=== PATIENT | female | born 1945 | race Caucasian/White ===

== ENCOUNTER → 2019-01-09 | Outpatient (CLI) | payer OTHER, MEDICARE ==
[~2019-01-09] VITALS: Ht 157.5 cm; Wt 52.2 kg
[~2019-01-09] MED LIST: ACETAMINOPHEN325 M1 PO; BENADRYL25 MG PO; CALTRATE 600 +1 EACH OR; COUMADIN PO; ELIQUIS5 MG PO; LIPITOR20 MG OR; NORVASC 5 MG TAB5 MG PO; PRILOSEC 20 MG20 MG OR; PYRIDIUM200 M1 OR; RYTHMOL150 MG PO; SOTALOL80 MG PO; TYLENOL EXTRA500 MG PO; ZOCOR40 MG PO
[2019-01-09 10:46] VITALS: BP 170/83
--- NOTE | 2019-01-09 11:08 | NUR ---
Pain Clinic Assessment: 1. History of Osteoarthritis: History of Rheumatoid Arthritis: 2. Height: 5 ft. 2 in. 157.5 cm. Weight: 115.0 lb. oz. 52.164 kg. Patient's BMI: 21.0 3. Vital Signs: BP: 170/83 Pulse: 72 Resp: 14 Temp: 02 Sat: 100 ECG Mon: 4. Pain Intensity: 6 5. Fall Risk: Dizziness: N Needs help standing or walking: N Fallen in the last 3 months: N Fall risk comments: 6. Patient on Blood Thinner: *ELIQUIS 7. History of Hypertension: Y 8. Opioid Therapy greater than 6 weeks: N Opiate Contract Signed: 9. Risk Assessment Tool Provided: 10. Functional Assessment Tool: 11. Recreational Drug Use: Never Drug Type: Tobacco Use: Never Smoker Tobacco Type: Amount or Packs/day: How Many Years: Alcohol Use: No Frequency: Quant:
--- NOTE | 2019-01-16 14:01 | HPC ---
[facility] [place] [address] PAIN MANAGEMENT CONSULTATION Name: DEBBIETARIQ Room #: REG [facility].#: [id number] Admission: 01/09/19 Attend Phys: Irving Riley DO Discharge: Date of : 43 Report #: [id number] THIS REPORT FOR: //name// CC: Dr. Dunia Riley [facility] DATE OF SERVICE: 01/09/2019 CHIEF COMPLAINT: Right neck pain. HISTORY OF PRESENT ILLNESS: As you know, the patient is a 73-year-old female with longstanding history of neck pain issues. The patient has been followed by multiple pain services starting at [facility], then to [facility] where she was treated by Dr. Roberto Barros. She then transferred care to [facility] following Dr. Barros. She has recently changed from Dr. Barros's previous clinic due to Dr. Barros leaving their practice. He has left to [place], [place] and thus too far for the patient to travel. She was given my name as a possible alternative physician. She had made an appointment today to discuss options for treatment. She has undergone multiple cervical epidural injections with good efficacy. She has been referred to our clinic to discuss the possibility of beginning those treatments once again. She denies injury or trauma that may have led to symptom occurrence. She has had longstanding issues secondary to cervical spinal stenosis and some mild neural foraminal stenosis. She also suffers from chronic low back pain and has been advised she is not a surgical candidate at this time. The patient indicates pain is mainly periodic and intermittent in its presentation. She describes the pain in the neck and right upper trapezius area. It is burning, aching, throbbing, tender and pressure like. She places current pain score 6/10, daily average of 6/10, worst pain has been is 8/10. Nothing tends to exacerbate symptoms, nor does anything tend to improve pain. She has been referred to our service to discuss options for treatment for her suspected cervical radiculopathy. PAST MEDICAL HISTORY: 1. Hypertension. 2. Degenerative joint disease. 3. Osteoarthritis. 4. Chronic neck pain. 5. Chronic low back pain. PAST SURGICAL HISTORY: 1. Bunionectomy. 2. Breast biopsy x 3. 3. Left knee arthroscopy. [address] [address] PAIN MANAGEMENT CONSULTATION Name: TARIQ LEWIS Alana Room #: REG [facility].#: [id number] Admission: 01/09/19 Attend Phys: Irving Riley DO Discharge: Date of : 43 Report #: [id number] SOCIAL HISTORY: The patient denies tobacco, alcohol, IV or illicit drug use. She is retired, retired in 2007. She is not receiving workmen's compensation, nor is she trying to obtain disability benefits. She is not in litigation in regards to pain. She is unaccompanied today. REVIEW OF SYSTEMS: Positive for wearing corrective eyewear, palpitations, frequent and recurrent coughs, chronic neck pain, chronic low back pain. All other review of systems negative per 12-point review of systems, and those listed in history of present illness. Pain impact score 13.70, indicating mild interference of daily activities secondary to pain. ALLERGIES: PENICILLIN, BETA BLOCKERS, ADHESIVE TAPE, LORATADINE and DILTIAZEM. CURRENT MEDICATIONS: Acetaminophen 500 mg dose t.i.d. p.r.n., sotalol 80 mg twice a day, Eliquis 5 mg b.i.d., calcium carbonate 1 tab per day, omeprazole 20 mg per day, atorvastatin 20 mg per day. IMAGING: MRIs cervical spine obtained 01/05/2019 shows C1-C2 unremarkable. C2-C3 unremarkable, C3-C4 shows mild diffuse posterior ridging and ocqa-ze-ftpbhnni facet changes, mild bilateral neural foraminal narrowing, canal measures 1.1 cm. C4-C5 shows posterior ridging and spurring, uncinate degenerative changes, greater on the right. Ventral cord is contacted with slight narrowing of the cord to 9 mm. Right lateral recess narrowing and bilateral neural foraminal narrowing seen. C5-C6, posterior ridging and uncinate degenerative changes with ventral cord contact, mild central canal narrowing to 0.9 cm, mild neural foraminal narrowing. C7-T1, mild posterior ridging with uncinate degenerative changes, mild facet degenerative changes, no central canal neural foraminal stenosis. C7-T1, posterior ridging, uncinate degenerative changes, no central canal neural foraminal stenosis. PQRS: The patient has known arthritic changes of the cervical spine, lumbar spine, bilateral hips and knees. No rheumatoid arthritis, placing pain score at 6/10. She is not a fall risk, has not had a fall in the last 3 months. She is on blood thinner in the form of Eliquis and has continued the medication today. She has history of hypertension, but no chronic opioids. She has a low opioid addiction potential with a pain impact score today at 13/70, indicating mild interference of daily activities secondary to pain. PHYSICAL EXAMINATION: VITAL SIGNS: Blood pressure 170/83, pulse 72, respiratory rate 14 and unlabored. The patient is 100% on room air. Height 5 feet 2 inches tall, weight 115 pounds, BMI calculated 21.0. GENERAL: Well-developed, well-nourished, well-hydrated, thin 73-year-old [facility] [address] [address] PAIN MANAGEMENT CONSULTATION Name: DEBBIETARIQ Room #: REG [facility]#: [id number] Admission: 01/09/19 Attend Phys: Irving Riley DO Discharge: Date of : 43 Report #: [id number] female, appears stated age, no acute distress, awake, alert and oriented x 3. Current pain score is rated around 6/10. HEENT: Normocephalic, atraumatic. Pupils are equal, round, reactive to light. Extraocular muscles are intact. Sclerae are nonicteric without injection. NEUROLOGIC: Cranial nerves 2-12 grossly intact. Speech is fluent. The patient deemed a good historian. LUNGS: Clear. No wheeze, rhonchi. No rales. CARDIOVASCULAR: Regular. No appreciable gallop. No rub. ABDOMEN: Soft, nontender, nondistended, normal active bowel sounds. EXTREMITIES: Show no clubbing, no cyanosis, and no edema. MUSCULOSKELETAL: Upper extremity strength is symmetrical, 5/5. Slight giveaway strength noted with abduction of the shoulder on the right when compared to left due to pain generation. There is palpatory tenderness over the paraspinal musculature of cervical spine. No spinous process tenderness. Muscle bulk and tone is equal and symmetrical in upper extremities bilaterally. Deep tendon reflexes are equal and symmetrical, 2+/4 at biceps, brachialis and triceps. Spurling's test positive on the right. Cervical provocation testing including rotation, lateral flexion of the right causes intensification of pain. Extension is mildly limited. No pain. Forward flexion of the cervical spine does improve symptoms and has full range of motion. ASSESSMENT: 1. Cervical radiculopathy. 2. Neural foraminal stenosis of the cervical spine. 3. Mild central canal stenosis of the cervical spine. 4. Cervical spondylosis with radiculopathy. 5. Chronic intractable pain. PLAN: Based on today's physical exam and history the patient has provided, the description the patient uses in regards to pain as well as location of symptoms, likely source of the patient's current neck pain and right upper extremity pain, it appears to be due to a cervical radiculopathy. We have discussed with the patient treatment options for cervical radicular symptoms today. The following was discussed with the patient. We discussed physical therapy, stretching exercises and traction techniques as a conservative treatment approach. The patient has had some physical therapy in the past, but denies any traction techniques during those trials. We discussed medication management utilizing neuropathic pain medication and consistent nonsteroidal anti-inflammatory. I did advise the patient that opioid medications have little or no benefit with radicular symptoms. We do not recommend them. We also discussed cervical epidural injections for which the patient has seen improvement in pain in the past. We also discussed spinal cord stimulator and possible surgical options. After reviewing the risks and benefits of all proposed treatment options, the patient chose to move forward with a cervical epidural injection under fluoroscopic guidance. [address] [address] PAIN MANAGEMENT CONSULTATION Name: TARIQ LEWIS Room #: REG [facility] Aniceto#: [id number] Admission: 01/09/19 Attend Phys: Irving Riley DO Discharge: Date of : 43 Report #: [id number] 2. The patient will need to discontinue her Eliquis 3 days prior to a cervical epidural injection. She has been advised by her vp emerging media that she could stop it for 2 days and this would be safe to undergo procedure. Unfortunately, she has been misinformed, JUDE requires that neural axial blockade be performed only after 3 days off this specific anticoagulant. I have advised the patient we follow the JUDE guidelines strictly. If she needs to gain clearance from her vp emerging media, she may do so, but we cannot provide this injection unless she has been off this medication for the total of 72 hours. The patient will contact her prescribing physician to confirm she can do so and we will have her scheduled back next Tuesday for an injection. 3. We made no changes in the patient's medication management at this time. The patient will continue current medical therapy as previously prescribed. 4. We will see the patient back in followup visit if she is able to gain clearance to come off her Eliquis for the 3 days required by JUDE to undergo a cervical epidural injection, we have the patient with a tentative appointment next Tuesday to undergo the procedure, but she will contact our clinic if she cannot gain clearance to come off the medications. 5. We wish to thank Dr. Archer for the referral of the patient to our clinic. We will keep you apprised of response to treatment as we address her cervical radicular symptoms. Again, we wish to thank you for the opportunity to see the patient in consultation. <ELECTRONICALLY SIGNED> By: Irving Riley DO 01/16/19 1401 0901 Irving Riley DO /nt
== END ==
LOC: PAIN 06:46
DX: M48.02 Spinal stenosis, cervical region (principal); M47.22 Other spondylosis with radiculopathy, cervical region; I10 Essential (primary) hypertension; M19.90 Unspecified osteoarthritis, unspecified site; G89.4 Chronic pain syndrome; Z88.8 Allergy status to other drugs, medicaments and biological substances; Z79.899 Other long term (current) drug therapy; Z88.0 Allergy status to penicillin

== ENCOUNTER → 2019-01-16 | Outpatient (CLI) | payer OTHER, MEDICARE ==
[~2019-01-16] VITALS: Ht 157.5 cm; Wt 54.9 kg
[2019-01-16 10:29] VITALS: BP 165/85
--- NOTE | 2019-01-16 10:41 | NUR ---
Pain Clinic Assessment: 1. History of Osteoarthritis: hands History of Rheumatoid Arthritis: Not Applicable 2. Height: 5 ft. 2 in. 157.5 cm. Weight: 121.0 lb. oz. 54.885 kg. Patient's BMI: 22.1 3. Vital Signs: BP: 165/85 Pulse: 72 Resp: 14 Temp: 02 Sat: 100 ECG Mon: 4. Pain Intensity: 6 5. Fall Risk: Dizziness: N Needs help standing or walking: N Fallen in the last 3 months: N Fall risk comments: 6. Patient on Blood Thinner: *ELIQUIS 7. History of Hypertension: Y 8. Opioid Therapy greater than 6 weeks: N Opiate Contract Signed: 9. Risk Assessment Tool Provided: 0-low 10. Functional Assessment Tool: 11. Recreational Drug Use: Never Drug Type: Tobacco Use: Never Smoker Tobacco Type: Amount or Packs/day: How Many Years: Alcohol Use: No Frequency: Quant:
--- NOTE | 2019-01-17 09:19 | HPC ---
[facility] [address] PAIN MANAGEMENT CONSULTATION Name: TARIQ LEWIS Room #: REG [facility]#: [id number] Admission: 01/16/19 Attend Phys: Irving Riley DO Discharge: Date of : 43 Report #: [id number] THIS REPORT FOR: //name// CC: Irving Archer MD DATE OF SERVICE: 01/17/2019 CHIEF COMPLAINT: Neck pain, right upper extremity pain. HISTORY OF PRESENT ILLNESS: As you know, the patient is a 73-year-old female who was seen in consultation per the request of her primary care physician on 01/09/2019, diagnosed with cervical radiculopathy and provided today's appointment to return to undergo cervical epidural injection. The patient had to discontinue her Eliquis for the 3 days prior to the procedure based on the JUDE guidelines. She returns today having discontinued the medication in preparation for the first in a series of cervical epidural injections. She is placing her pain today at 6/10. She denies new injury, trauma or any changes in medical history since our last visit. ALLERGIES: PENICILLIN, BETA BLOCKERS, ADHESIVE TAPE, LORATADINE AND DILTIAZEM. CURRENT MEDICATIONS: Acetaminophen, sotalol, calcium carbonate, omeprazole, atorvastatin. SOCIAL HISTORY: The patient denies tobacco, IV or illicit drug use. Denies any chronic alcohol use. She retired in 2007. Unaccompanied today. IMAGING: No new imaging available. PHYSICAL EXAMINATION: VITAL SIGNS: Blood pressure 165/85, pulse 72, respiratory rate 14 and unlabored. The patient is 100% on room air. Height 5 feet 2 inches tall, weight 121 pounds, BMI calculated 22.1. GENERAL: Well-developed, well-nourished, well-hydrated 73-year-old female appearing stated age, pain is rated around 6/10. HEENT: Normocephalic, atraumatic. Pupils equal, round, reactive to light. EXTREMITIES: Show no clubbing, no cyanosis, and no edema. MUSCULOSKELETAL: Upper extremity strength appears symmetrical 5/5. There is slight giveaway strength noted with abduction of the right shoulder when compared to left. There are no changes in muscle bulk and tone in the upper extremities bilaterally. Deep tendon reflexes remain symmetrical, 2+/4, biceps, brachialis and triceps. Spurling's test positive right. ASSESSMENT: [address] [address] PAIN MANAGEMENT CONSULTATION Name: TARIQ LEWIS [id number] Admission: 01/16/19 Attend Phys: Irving Riley DO Discharge: Date of : 43 Report #: [id number] 1. Cervical radiculopathy. 2. Neural foraminal stenosis of the cervical spine. 3. Mild central canal stenosis of the cervical spine. 4. Cervical spondylosis with radiculopathy. 5. Chronic intractable pain. PLAN: 1. The patient returns today in followup visit having discontinued her Eliquis for the past 3 days in preparation for a cervical epidural injection. The patient reports no new injury or trauma that has led to continuation of symptoms. She is placing pain today at around 6/10. She returns today in preparation for a cervical epidural injection. She has been advised risks and benefits of this procedure. These risks include but are not necessarily limited to bleeding, bruising, infection, worsening pain, no relief of pain, also risk of temporary or permanent muscle weakness, temporary or permanent nerve damage, possible paralysis, post-dural puncture headache and . The patient states understood and wished to proceed. 2. The patient will restart her Eliquis this evening and continue Eliquis on a b.i.d. dosing. We will see her back in followup visit to discuss the efficacy of today's cervical epidural injection approximately one month. At that time, we will discuss whether or not moving forward with continued treatment with a cervical epidural injection would be recommended PROCEDURE NOTE DESCRIPTION OF PROCEDURE: C7-T1 cervical epidural steroid injection under fluoroscopic guidance. This is the first procedure of the first series that the patient is undergoing. After obtaining written consent, the patient was taken back to the fluoroscopy suite and placed in a prone position with separate pillows under chest and forehead to decrease cervical lordosis. The skin overlying the cervical area was prepped and draped in an aseptic fashion. The C7-T1 vertebral interspace was identified by AP fluoroscopy. The skin and subcutaneous tissue overlying the target site of injection was anesthetized using 3 mL of 1% lidocaine. A 20-gauge Tuohy needle was advanced under fluoroscopic guidance toward the epidural space using a midline approach. The epidural space was identified using a loss of resistance to air technique. After negative aspiration for heme or cerebrospinal fluid, a total of 1 mL of Omnipaque was injected. A cervical epidurogram was confirmed using AP and oblique fluoroscopy. After negative aspiration for heme or cerebrospinal fluid, 5 mL of a solution containing 2 mL 40 mg per mL, 80 mg total triamcinolone along with 3 mL of lidocaine 1% was injected in increments. Contrast spread was noted from posterior epidural space. The needle was then retracted approximately senior living and the needle track [address] [address] PAIN MANAGEMENT CONSULTATION Name: TARIQ LEWIS Room #: REG [facility]#: [id number] Admission: 01/16/19 Attend Phys: Irving Riley DO Discharge: Date of : 43 Report #: [id number] was flushed with 1 mL of 1% lidocaine. There were no apparent new sensory deficits in the upper extremities present following the procedure. A sterile bandage was placed over the injection site. The heart rate, pulse oximetry and blood pressure were continuously monitored after the procedure. There were no apparent complications. The patient tolerated the procedure well and was carefully escorted in the recovery room in stable condition. After meeting discharge criteria, the patient was discharged home. <ELECTRONICALLY SIGNED> By: Irving Riley DO 01/17/19 0919 [id number] Irving Riley DO /nt
== END | disposition home or self-care (01) ==
LOC: PAIN 01-12 13:16
DX: M54.12 Radiculopathy, cervical region (principal); M99.71 Connective tissue and disc stenosis of intervertebral foramina of cervical region; M48.02 Spinal stenosis, cervical region; G89.29 Other chronic pain; Z88.0 Allergy status to penicillin; Z88.8 Allergy status to other drugs, medicaments and biological substances; Z79.899 Other long term (current) drug therapy

== ENCOUNTER → 2019-01-30 | Outpatient (CLI) | payer OTHER, MEDICARE ==
[~2019-01-30] VITALS: Ht 157.5 cm; Wt 53.3 kg
[2019-01-30 10:34] VITALS: BP 160/76
--- NOTE | 2019-01-30 10:55 | NUR ---
Pain Clinic Assessment: 1. History of Osteoarthritis: hands History of Rheumatoid Arthritis: DENIES 2. Height: 5 ft. 2 in. 157.5 cm. Weight: 117.6 lb. oz. 53.343 kg. Patient's BMI: 21.5 3. Vital Signs: BP: 160/76 Pulse: 64 Resp: 14 Temp: 02 Sat: 98 ECG Mon: 4. Pain Intensity: 6 5. Fall Risk: Dizziness: N Needs help standing or walking: N Fallen in the last 3 months: N Fall risk comments: 6. Patient on Blood Thinner: *ELIQUIS 7. History of Hypertension: Y 8. Opioid Therapy greater than 6 weeks: N Opiate Contract Signed: 9. Risk Assessment Tool Provided: 0-low 10. Functional Assessment Tool: 11. Recreational Drug Use: Never Drug Type: Tobacco Use: Never Smoker Tobacco Type: Amount or Packs/day: How Many Years: Alcohol Use: No Frequency: Quant:
--- NOTE | 2019-01-31 12:58 | HPC ---
[facility] [place] [address] PAIN MANAGEMENT CONSULTATION Name: TARIQ LEWIS Room #: REG [facility]#: [id number] Admission: 01/30/19 Attend Phys: Irving Riley DO Discharge: Date of : 43 Report #: [id number] THIS REPORT FOR: //name// CC: Irving Archer MD DATE OF SERVICE: 01/30/2019 REFERRING PHYSICIAN: Dunia Archer MD. CHIEF COMPLAINT: Low back pain and bilateral lower extremity pain, right greater than left. HISTORY OF PRESENT ILLNESS: As you know, the patient is a 73-year-old female, who was referred to our service for both cervical radiculopathy and lumbar radiculopathy. She underwent a cervical epidural injection at our last visit with good improvement in overall pain. She is indicating neck pain is greater than 85% improved. She returns today with ongoing low back pain and bilateral lower extremity pain, right greater than left, that she places pain at 6/10. She returns to undergo a lumbar epidural injection under fluoroscopic guidance. She has had lumbar epidural injections provided by another pain service in the past with good efficacy and wishes to undergo one today. She has been advised the risks and benefits of the procedure and wishes to proceed. ALLERGIES: PENICILLIN, BETA-BLOCKERS, ADHESIVE TAPE, LORATADINE, and DILTIAZEM. CURRENT MEDICATIONS: Acetaminophen, sotalol, calcium carbonate, omeprazole, and atorvastatin. SOCIAL HISTORY: The patient denies tobacco, IV, or illicit drug use. Denies any chronic alcohol use. Retired in 2007. Unaccompanied today. IMAGING: No new imaging is available. PQRS: The patient has known arthritic changes of the lumbar spine and bilateral hands. No rheumatoid arthritis. She is placing pain intensity 6/10. She is not a fall risk and has not had a fall in the last 3 months. She is on a blood thinner in the form of Eliquis and stopped this 3 days prior to today's epidural injection. She is treated for hypertension, not on chronic opioids, and has a low opioid addiction potential and pain impact score is 18 of 70, indicating mild interference of daily activities secondary to pain. PHYSICAL EXAMINATION: VITAL SIGNS: Blood pressure 160/76, pulse 64, and respiratory rate 14 and unlabored. The patient is 98% on the room air. Height 5 feet and 2 [place] [address] PAIN MANAGEMENT CONSULTATION Name: TARIQ LEWIS [facility] [id number] Admission: 01/30/19 Attend Phys: Irving Riley DO Discharge: Date of : 43 Report #: [id number] and weight 117.6 pounds. BMI calculated is 21.5. GENERAL: Well-developed, well-nourished, and well-hydrated 73-year-old female, appearing stated age and pain is rated today 6/10. HEENT: Normocephalic and atraumatic. Pupils are equal, round, and reactive to light. EXTREMITIES: Show no clubbing, no cyanosis, and no edema. MUSCULOSKELETAL: Lower extremity strength equal and symmetrical 5/5, intact to light touch from L1 through S2 dermatomes. Seated straight leg raising is negative. Supine straight leg raising is mildly positive on the right at about 70-degree angle. Ankle clonus is negative. Babinski is negative. Gait, mildly antalgic, favoring right lower extremity over left. ASSESSMENT: 1. Symptomatic lumbar radiculopathy. 2. Lumbosacral spondylosis with radiculopathy. 3. Lumbar degeneration. 4. Chronic intractable pain. PLAN: 1. The patient has returned today in followup visit having noted 85% improvement in overall pain with the cervical epidural injection. She is doing well from a cervical radicular standpoint. She returns today to address the lumbar radicular symptoms. As you are aware, the patient does have a lumbar radicular pain secondary to changes similar to what we have seen in the cervical region with neural foraminal stenosis and facet arthropathy changes, causing neural impingement. She has had epidural injections in the past, which have provided good benefit. She returns today to undergo a lumbar epidural injection under fluoroscopic guidance. She does understand that this does count as one of the epidural injections provided. She can have 3 epidurals in a 6-month period and 6 in a year. This is the second in the series of epidural injections. This happens to be in the lumbar spine. She has been advised of risks and benefits of procedure, states understood, and wished to proceed. 2. No medication changes made at today's visit. The patient will continue current medical therapy as prior prescribed. 3. We will see the patient back in followup visit on an as needed basis for possible next in the series of epidural injections. PROCEDURE NOTE DESCRIPTION OF PROCEDURE: L5-S1 INTERLAMINAR EPIDURAL STEROID INJECTION UNDER FLUOROSCOPIC GUIDANCE: After obtaining written consent, the patient was taken back to fluoroscopy suite and placed in prone position with pillow under abdomen to decrease lumbar lordosis. Skin overlying lumbosacral area prepped and draped in aseptic fashion. The L5-S1 vertebral interspace identified by AP fluoroscopy. Skin and subcutaneous tissue overlying target site of injection anesthetized with 3 mL of 1% lidocaine. [address] [address] PAIN MANAGEMENT CONSULTATION Name: TARIQ LEWIS Room #: REG [facility]#: [id number] Admission: 01/30/19 Attend Phys: Irving Riley DO Discharge: Date of : 43 Report #: [id number] A 20-gauge, 3-1/2 inch Tuohy needle advanced under fluoroscopic guidance towards the epidural space using a midline approach. Epidural space identified using loss of resistance to air technique. After negative aspiration for heme and cerebrospinal fluid, 1 mL of Omnipaque was injected. Lumbar epidurogram confirmed using both AP and lateral fluoroscopy. After negative aspiration for heme or cerebrospinal fluid, 5 mL of a solution containing 2 mL 40 mg per mL, 80 mg total triamcinolone along with 3 mL lidocaine 1% injected slowly. Needle retracted senior care, flushed with 1 mL of 1% lidocaine, and then removed. Sterile bandage was placed over injection site. There were no new motor deficits present in the lower extremities following procedure. The patient tolerated procedure well and carefully escorted to recovery room in stable condition. No apparent complications. After meeting discharge criteria, the patient was discharged home. <ELECTRONICALLY SIGNED> By: Irving Riley DO 01/31/19 1258 [id number] Irving Riley, DO /nt
== END | disposition home or self-care (01) ==
LOC: PAIN 06:52
DX: M51.16 Intervertebral disc disorders with radiculopathy, lumbar region (principal); M47.27 Other spondylosis with radiculopathy, lumbosacral region; G89.29 Other chronic pain; I10 Essential (primary) hypertension; Z98.890 Other specified postprocedural states; Z79.899 Other long term (current) drug therapy; Z88.0 Allergy status to penicillin; Z88.8 Allergy status to other drugs, medicaments and biological substances; Z79.01 Long term (current) use of anticoagulants

== ENCOUNTER → 2019-08-07 | Outpatient (CLI) | payer OTHER, MEDICARE ==
[~2019-08-07] VITALS: Ht 162.6 cm; Wt 51.2 kg
[~2019-08-07] MED LIST changes: +METOPROLOL SUCC25 M1 PO; +TAMBOCOR 100 M100 M1 PO
[2019-08-07 13:12] VITALS: BP 167/87
--- NOTE | 2019-08-07 13:31 | NUR ---
Pain Clinic Assessment: 1. History of Osteoarthritis: hands History of Rheumatoid Arthritis: DENIES 2. Height: 5 ft. 4 in. 162.6 cm. Weight: 112.8 lb. oz. 51.166 kg. Patient's BMI: 19.4 3. Vital Signs: BP: 167/87 Pulse: 84 Resp: 14 Temp: 02 Sat: 97 ECG Mon: 4. Pain Intensity: 7 5. Fall Risk: Dizziness: N Needs help standing or walking: N Fallen in the last 3 months: N Fall risk comments: 6. Patient on Blood Thinner: *ELIQUIS 7. History of Hypertension: Y 8. Opioid Therapy greater than 6 weeks: N Opiate Contract Signed: 9. Risk Assessment Tool Provided: 0-low 10. Functional Assessment Tool: 11. Recreational Drug Use: Never Drug Type: Tobacco Use: Never Smoker Tobacco Type: Amount or Packs/day: How Many Years: Alcohol Use: No Frequency: Quant:
--- NOTE | 2019-08-08 13:15 | HPC ---
[facility] [place] [address] PAIN MANAGEMENT CONSULTATION Name: TARIQ LEWIS Room #: REG [facility].#: [id number] Admission: 08/07/19 Attend Phys: Irving Riley DO Discharge: Date of : 43 Report #: [id number] THIS REPORT FOR: cc: Dunia Archer MD, Jennifer S. MD Johnson, James E. DO ~ DATE OF SERVICE: 08/07/2019 CHIEF COMPLAINT: Low back pain and bilateral lower extremity pain, right greater than left. HISTORY OF PRESENT ILLNESS: As you know, the patient is a 74-year-old female who has returned today in followup visit to undergo a lumbar epidural injection under fluoroscopic guidance to address lumbar radicular symptoms. She is placing pain score today at 7/10. She has discontinued her Eliquis 3 days prior to today's appointment to undergo the lumbar epidural injection. She reports that the injection provided at our last visit gave greater than 50% improvement in overall pain lasting for nearly 3 months. She returns today in followup visit for next in the series of lumbar epidural injections. She indicates she has completed all antibiotic therapy 14 days ago. ALLERGIES: PENICILLIN, BETA BLOCKERS, ADHESIVE TAPE, LORATADINE AND DILTIAZEM. CURRENT MEDICATIONS: Acetaminophen, sotalol, calcium carbonate, omeprazole, and atorvastatin. SOCIAL HISTORY: The patient denies tobacco, alcohol, IV or illicit drug use. She retired in 2007. Unaccompanied today. IMAGING: No new imaging available. PQRS: The patient has known arthritic changes of the lumbar spine, bilateral hands, but denies rheumatoid arthritis. She is placing current pain score 7/10. She is not a fall risk, has not had a fall in last 3 months. She is on blood thinners in the form of Eliquis, but discontinued 3 days ago in preparation for today's procedure. She is treated for hypertension. She is not on chronic opioids, has a low opioid addiction potential. Pain impact score is of 18/70 indicating mild interference of daily activities secondary to pain. PHYSICAL EXAMINATION: VITAL SIGNS: Blood pressure 167/87, pulse is 84, respiratory rate 14 and unlabored. The patient is 97% on room air. Height 5 feet 4 inches tall, weight 112.8 pounds, and BMI calculated 19.4. GENERAL: Well-developed, well-nourished, well-hydrated 74-year-old female, appearing stated age, pain is rated today 7/10. [address] [address] PAIN MANAGEMENT CONSULTATION Name: TARIQ LEWIS Room #: REG [facility]#: [id number] Admission: 08/07/19 Attend Phys: Irving Riley DO Discharge: Date of : 43 Report #: [id number] HEENT: Normocephalic, atraumatic. Pupils equal, round and reactive. EXTREMITIES: Show no clubbing, no cyanosis. No noted edema. MUSCULOSKELETAL: Seated straight leg raising is negative. Supine straight leg raising mildly positive on the right. Eder's test negative. Modified Gaenslen's positive for axial low back pain. Ankle clonus negative. Babinski is negative. ASSESSMENT: 1. Symptomatic lumbar radiculopathy. 2. Lumbosacral spondylosis with radiculopathy. 3. Lumbar degeneration. 4. Chronic intractable pain. PLAN: 1. The patient returns today in followup visit to undergo next in the series of lumbar epidural injections. The most recent epidural injection gave greater than 50% improvement in overall pain lasting until just recently where she has had a slow and progressive return of symptoms. She denies new injury or trauma that may have led to symptom development. She has completed all antibiotic therapy about 14 days ago for an acute sinusitis. She has discontinued her Eliquis in preparation for today's procedure. She stopped this medication 3 days ago. She indicates pain mainly on the right side, but also intermittently on the left. She returns today for epidural injection. The patient has been advised risks and benefits of a lumbar epidural injection. These risks include, but are not necessarily limited to bleeding, bruising, infection, worsening pain, no relief of pain, also risk of temporary or permanent muscle weakness, temporary or permanent nerve damage, possible paralysis and . The patient states understood and wished to proceed. 2. No medication changes made at today's visit. The patient will restart her Eliquis this evening and continue Eliquis as directed. 3. We will see the patient back in followup visit on an as needed basis for possible next in the series of epidural injections. PROCEDURE NOTE DESCRIPTION OF PROCEDURE: L5-S1 interlaminar epidural steroid injection under fluoroscopic guidance. After obtaining written consent, the patient was taken back to fluoroscopy suite, placed in prone position with pillow under abdomen to decrease lumbar lordosis. Skin overlying lumbosacral area then prepped and draped in aseptic fashion. The L5-S1 vertebral interspace was identified by AP fluoroscopy. Skin and subcutaneous tissue overlying target site injection anesthetized with 3 mL of 1% lidocaine. A 20-gauge 3-1/2 inch Tuohy needle advanced under fluoroscopic guidance towards [address] [address] PAIN MANAGEMENT CONSULTATION Name: TARIQ LEWIS Room #: REG [facility]#: [id number] Admission: 08/07/19 Attend Phys: Irving Riley DO Discharge: Date of : 43 Report #: [id number] the epidural space using a parasagittal approach. Epidural space identified using loss of resistance to air technique. After negative aspiration for heme or cerebrospinal fluid, 1 mL of isovue injected. Lumbar epidurogram confirmed using both AP and lateral fluoroscopy. After negative aspiration for heme or cerebrospinal fluid, 5 mL of a solution containing 2 mL 40 mg per mL, 80 mg total triamcinolone along with 3 mL of lidocaine 1% injected slowly. Needle then retracted alf, flushed with 1 mL of 1% lidocaine and then removed. Sterile bandage placed over injection site. There were no new motor deficits present in lower extremity following procedure. The patient tolerated procedure well, carefully escorted to recovery room in stable condition. No apparent complications. After meeting discharge criteria, the patient discharged home. <ELECTRONICALLY SIGNED> By: Irving Riley DO 08/08/19 1315 [id number] 1538 Irving Riley DO /nt
== END | disposition home or self-care (01) ==
LOC: PAIN 03-13 10:59
PROVIDERS: ATTEND Anesthesiology Pain Medicine
DX: M51.16 Intervertebral disc disorders with radiculopathy, lumbar region (principal); M47.27 Other spondylosis with radiculopathy, lumbosacral region; G89.29 Other chronic pain; I10 Essential (primary) hypertension; M19.90 Unspecified osteoarthritis, unspecified site; Z98.890 Other specified postprocedural states; Z79.899 Other long term (current) drug therapy; Z79.01 Long term (current) use of anticoagulants

== ENCOUNTER → 2019-09-11 | Outpatient (CLI) | payer OTHER, MEDICARE ==
[~2019-09-11] VITALS: Ht 162.6 cm; Wt 51.3 kg
--- NOTE | ~2019-09-11 | HPC ---
[facility] [place] [address] PAIN MANAGEMENT CONSULTATION Name: TARIQ LEWIS Room #: REG [facility].#: [id number] Admission: 09/11/19 Attend Phys: Irving Riley DO Discharge: Date of : 43 Report #: [id number] THIS REPORT FOR: cc: Dunia Archer MD, Jennifer S. MD Johnson, James E. DO ~ CC: Irving Archer MD DATE OF SERVICE: 09/11/2019 CHIEF COMPLAINT: Low back pain, bilateral lower extremity pain, right greater than left. HISTORY OF PRESENT ILLNESS: As you know, the patient is a very pleasant 74-year-old female returning in followup visit to undergo lumbar epidural injection under fluoroscopic guidance. She is placing pain score 7/10. She describes the pain as tingling and pressure like in sensation, exacerbated with standing, improves with heat, cold compresses, medication management and previous epidural injection, which gave greater than 50% improvement in overall pain. Unfortunately, her symptoms have begun to return. No inciting injury or trauma. She returns to undergo next in the series of lumbar epidural injections. ALLERGIES: PENICILLIN, BETA BLOCKERS, ADHESIVE TAPE, LORATADINE and DILTIAZEM. CURRENT MEDICATIONS: Acetaminophen, sotalol, calcium carbonate, omeprazole, atorvastatin, flecainide and Eliquis. SOCIAL HISTORY: The patient denies tobacco, alcohol, IV or illicit drug use. She retired in 2007. Unaccompanied today. IMAGING: No new imaging available. PQRS: The patient has known arthritic changes of the lumbar spine, bilateral hands, but denies rheumatoid arthritis. She is placing current pain score at 7/10. She is not a fall risk, has not had a fall in last 3 months. She is on blood thinners in the form of Eliquis and discontinued the medication 3 days ago in preparation for today's procedure. The patient is treated for hypertension, but is not on chronic opioids. She has a low opiate addiction potential. Pain impact score is 18/70 indicating mild interference of daily activities secondary to pain. PHYSICAL EXAMINATION: VITAL SIGNS: Blood pressure 187/93, pulse 75, respiratory rate [address] [address] PAIN MANAGEMENT CONSULTATION Name: TARIQ LEWIS Room #: REG [facility]#: [id number] Admission: 09/11/19 Attend Phys: Irving Riley DO Discharge: Date of : 43 Report #: [id number] unlabored. The patient is 97% on room air. Height 5 feet 4 inches tall, weight 113.2 pounds, BMI calculated 19.4. GENERAL: Well-developed, well-nourished, well-hydrated, thin, 74-year-old female appearing stated age, pain is rated today 7/10. HEENT: Normocephalic, atraumatic. Pupils are equal, round and reactive. Extraocular muscles are intact. Speech is fluent. EXTREMITIES: Show no clubbing, no cyanosis, no edema. MUSCULOSKELETAL: Lower extremity strength appears symmetrical again today 5/5, intact to light touch from L1 through S2 dermatomes. Seated straight leg raising negative. Supine straight leg raising is mildly positive on the right. Gait appears normal. Stance appears normal. ASSESSMENT: 1. Symptomatic lumbar radiculopathy. 2. Lumbosacral spondylosis with radiculopathy. 3. Lumbar degeneration. 4. Chronic intractable pain. PLAN: 1. The patient returns today in followup visit reporting greater than 50% improvement in overall pain with previous epidural injection. She returns today in followup visit with a slow and progressive return of symptoms. She denies injury or trauma. She returns for the next in the series of epidural injections. She has been advised of the risks and benefits of this procedure, states understood and wished to proceed. 2. No medication changes made at today's visit. The patient will continue current medical therapy as prior prescribed. 3. The patient will return to our clinic on an as needed basis for possible next in the series of epidural injections. We are hopeful the patient will see good and prolonged benefit with today's procedure. PROCEDURE NOTE: DESCRIPTION OF PROCEDURE: L5-S1 right paramedian epidural steroid injection under fluoroscopic guidance. After obtaining written consent, the patient was taken back to fluoroscopy suite, placed in prone position with pillow under abdomen to decrease lumbar lordosis. Skin overlying lumbosacral area then prepped and draped in aseptic fashion. L5-S1 vertebral interspace identified by AP fluoroscopy. Skin and subcutaneous tissue overlying target site injection anesthetized with 3 mL of 1% lidocaine. A 20-gauge 3-1/2 inch Tuohy needle advanced under fluoroscopic guidance towards the epidural space using right paramedian approach. Epidural space identified using loss of resistance to air technique. After negative aspiration for heme or cerebrospinal fluid, 1 mL of Omnipaque injected. Lumbar epidurogram [address] [address] PAIN MANAGEMENT CONSULTATION Name: TARIQ LEWIS Room #: REG [facility]#: [id number] Admission: 09/11/19 Attend Phys: Irving Riley DO Discharge: Date of : 43 Report #: [id number] confirmed using both AP and lateral fluoroscopy. After negative aspiration for heme or cerebrospinal fluid, 5 mL of a solution containing 2 mL 40 mg per mL, 80 mg total triamcinolone along with 3 mL of lidocaine 1% injected slowly. Needle retracted detention, flushed with 1 mL of 1% lidocaine and then removed. Sterile bandage placed over injection site. No new motor deficits present in lower extremity following procedure. The patient tolerated procedure well, carefully escorted to recovery room in stable condition. No apparent complications. After meeting discharge criteria, the patient was discharged home. The patient was advised to restart her Eliquis today and continue the Eliquis as directed. By: [id number] Irving Riley DO /nt
[2019-09-11 10:18] VITALS: BP 187/93
--- NOTE | 2019-09-11 10:26 | NUR ---
Pain Clinic Assessment: 1. History of Osteoarthritis: HANDS BACK History of Rheumatoid Arthritis: DENIES 2. Height: 5 ft. 4 in. 162.6 cm. Weight: 113.2 lb. oz. 51.347 kg. Patient's BMI: 19.4 3. Vital Signs: BP: 187/93 Pulse: 75 Resp: 16 Temp: 02 Sat: 97 ECG Mon: 4. Pain Intensity: 7 5. Fall Risk: Dizziness: N Needs help standing or walking: N Fallen in the last 3 months: N Fall risk comments: 6. Patient on Blood Thinner: *ELIQUIS 7. History of Hypertension: Y 8. Opioid Therapy greater than 6 weeks: N Opiate Contract Signed: 9. Risk Assessment Tool Provided: 0-low 10. Functional Assessment Tool: 11. Recreational Drug Use: Never Drug Type: Tobacco Use: Never Smoker Tobacco Type: Amount or Packs/day: How Many Years: Alcohol Use: No Frequency: Quant:
== END | disposition home or self-care (01) ==
LOC: PAIN 06:56
PROVIDERS: ATTEND Anesthesiology Pain Medicine
DX: M51.16 Intervertebral disc disorders with radiculopathy, lumbar region (principal); M47.27 Other spondylosis with radiculopathy, lumbosacral region; G89.29 Other chronic pain; I10 Essential (primary) hypertension; M19.90 Unspecified osteoarthritis, unspecified site; Z98.890 Other specified postprocedural states; Z79.899 Other long term (current) drug therapy; Z88.0 Allergy status to penicillin; Z88.8 Allergy status to other drugs, medicaments and biological substances

== ENCOUNTER → 2019-10-16 | Outpatient (CLI) | payer OTHER, MEDICARE ==
[~2019-10-16] VITALS: Ht 162.6 cm; Wt 52.2 kg
[2019-10-16 09:26] VITALS: BP 182/74
--- NOTE | 2019-10-16 09:31 | NUR ---
Pain Clinic Assessment: 1. History of Osteoarthritis: HANDS BACK History of Rheumatoid Arthritis: Not Applicable 2. Height: 5 ft. 4 in. 162.6 cm. Weight: 115.0 lb. oz. 52.164 kg. Patient's BMI: 19.7 3. Vital Signs: BP: 182/74 Pulse: 74 Resp: 14 Temp: 02 Sat: 98 ECG Mon: 4. Pain Intensity: 4 5. Fall Risk: Dizziness: N Needs help standing or walking: N Fallen in the last 3 months: N Fall risk comments: 6. Patient on Blood Thinner: *ELIQUIS 7. History of Hypertension: Y 8. Opioid Therapy greater than 6 weeks: N Opiate Contract Signed: 9. Risk Assessment Tool Provided: 0-low 10. Functional Assessment Tool: 11. Recreational Drug Use: Never Drug Type: Tobacco Use: Never Smoker Tobacco Type: Amount or Packs/day: How Many Years: Alcohol Use: No Frequency: Quant:
--- NOTE | 2019-10-17 12:56 | HPC ---
[facility] [place] [address] PAIN MANAGEMENT CONSULTATION Name: TARIQ LEWIS Room #: REG [facility].#: [id number] Admission: 10/16/19 Attend Phys: Irving Riley DO Discharge: Date of : 43 Report #: [id number] THIS REPORT FOR: cc: Dunia Archer MD, Jennifer S. MD Johnson, James E. DO ~ DATE OF SERVICE: 10/16/2019 CHIEF COMPLAINT: Neck pain, right upper extremity pain with paresthesias. HISTORY OF PRESENT ILLNESS: As you know, the patient is a very pleasant 74-year-old female who has returned today in followup visit with recurrent cervical radicular symptoms and cervical spondylosis. She is placing pain score today at around 4/10. She denies injury or trauma that may have led to symptom reoccurrence. She has had a longstanding history of cervical radiculopathy and cervical spondylosis causing chronic neck pain and right upper extremity symptoms. She received injections through another pain service for years, transferring her care to our service after that physician left the area. She has done very well with cervical epidural injections and lumbar epidural injections to address 2 different generators of symptoms. She returns today for a cervical epidural injection. The patient indicates symptoms are aching, sore and burning in sensation; exacerbated with driving, doing housework and cooking, improves with medications and epidural injections. ALLERGIES: PENICILLIN, BETA BLOCKERS, ADHESIVE TAPE, LORATADINE and DILTIAZEM. CURRENT MEDICATIONS: Acetaminophen, sotalol, calcium carbonate, omeprazole, atorvastatin, flecainide and Eliquis. SOCIAL HISTORY: The patient denies tobacco, alcohol, IV or illicit drug use. She retired in 2007. She is unaccompanied today. IMAGING: No new imaging available. PQRS: The patient has known arthritic changes of the lumbar spine, bilateral hands and cervical spine. No rheumatoid arthritis. She is placing current pain score at 4/10. She is not a fall risk nor has she had a fall in last 3 months. She is on Eliquis, but discontinued the medication 72 hours ago in preparation for today's procedure. She is treated for hypertension. She is not on any chronic opioids, has a low opiate addiction potential based on our assessment tool. Pain impact is 18/70, mild interference of daily activities secondary to pain. PHYSICAL EXAMINATION: VITAL SIGNS: Blood pressure 182/74, pulse 74, respiratory rate 14 and [facility] [address] [place] [address] PAIN MANAGEMENT CONSULTATION Name: TARIQ LEWIS Room #: REG [facility]#: [id number] Admission: 10/16/19 Attend Phys: Irving Riley DO Discharge: Date of : 43 Report #: [id number] unlabored. The patient is 98% on room air. Height 5 feet 4 inches tall, weighs 115 pounds, BMI calculated 19.7. GENERAL: Well-developed, well-nourished, well-hydrated 74-year-old female, appearing stated age, pain is rated today 4/10. HEENT: Normocephalic, atraumatic. Pupils equal, round and reactive. NEUROLOGIC: Speech is fluent. The patient is wearing a mask in compliance with COVID-19 restrictions. EXTREMITIES: Show no clubbing, no cyanosis, no edema. MUSCULOSKELETAL: Upper extremity strength appears symmetrical 5/5. Deconditioning noted bilaterally. Pain is elicited with cervical provocation to the right, specifically with lateral flexion and rotation. Flexion of the cervical spine is met with no pain, but limited range of motion. Extension is also met with no pain, limited range of motion. Upper extremity muscle bulk and tone equal and symmetrical, intact to light touch from C5-T1 dermatomes. Spurling's test positive on the right. ASSESSMENT: 1. Cervical radiculopathy. 2. Cervical spondylosis with radiculopathy. 3. Neural foraminal stenosis of the cervical spine. 4. Central canal stenosis of the cervical spine. 5. Chronic intractable pain. PLAN: 1. The patient returns today in followup visit with recurrent neck pain, right upper extremity symptoms consistent with her cervical radiculopathy. She has done very well with epidural injections to address lumbar radicular symptoms, but has had a recurrence of cervical radicular pain without inciting injury or trauma. She states that daily activities such as driving and cooking exacerbates her symptoms. She returns for the next in the series of cervical epidural injections. The patient has been advised risks and benefits of a cervical epidural injection. These risks include but are not necessarily limited to bleeding, bruising, infection, worsening pain, no relief of pain, also risk of temporary or permanent muscle weakness, temporary or permanent nerve damage, possible paralysis and . The patient states understood and wished to proceed. 2. No medication changes made at today's visit. We had a long discussion with the patient about various treatment options to address lumbar radicular symptoms including Vertiflex, StabiLink, and spinal cord stimulator trials as well as the MILD procedure. The patient has a better understanding of these procedures and is considering them as options to address her lumbar radicular symptoms. 3. We will see the patient back in followup visit on an as needed basis. She will keep us apprised of her review of the adjunctive treatment options discussed today including the MILD procedure, Vertiflex, StabiLink, and spinal cord stimulator. I did give the patient information about spinal cord stimulator today to review on her own. If she wishes to move forward with these [facility] [address] [place] [address] PAIN MANAGEMENT CONSULTATION Name: TARIQ LEWIS Room #: REG [facility].#: [id number] Admission: 10/16/19 Attend Phys: Irving Riley DO Discharge: Date of : 43 Report #: [id number] type of treatment options, she is going to contact our clinic. PROCEDURE NOTE DESCRIPTION OF PROCEDURE: C7-T1 cervical epidural steroid injection under fluoroscopic guidance. After obtaining written consent, the patient was taken back to fluoroscopy suite, placed in prone position with separate pillows under chest and forehead to decrease cervical lordosis. Skin overlying cervical area then prepped and draped in aseptic fashion. C7-T1 cervical interspace identified by AP fluoroscopy. Skin and subcutaneous tissue overlying target site injection anesthetized with 3 mL of 1% lidocaine. A 20-gauge 3-1/2 inch Tuohy needle advanced under fluoroscopic guidance towards the epidural space using midline approach. Epidural space identified using loss of resistance to air technique. After negative aspiration for heme or cerebrospinal fluid, 1 mL of Omnipaque injected. A cervical epidurogram confirmed using both AP and lateral fluoroscopy. After negative aspiration for heme or cerebrospinal fluid, 5 mL of a solution containing 2 mL 40 mg per mL, 80 mg total triamcinolone along with 3 mL lidocaine 1% injected slowly. Needle retracted mcfp, flushed with 1 mL of 1% lidocaine and removed. Sterile bandage placed over injection site. No new motor deficits present in the upper extremities following procedure. The patient tolerated procedure well, carefully escorted to recovery room in stable condition. No apparent complications. After meeting discharge criteria, the patient discharged home. <ELECTRONICALLY SIGNED> By: Irving Riley DO 10/17/19 1256 [id number] 1225 Irving Riley DO /nt
== END | disposition home or self-care (01) ==
LOC: PAIN 06:52
PROVIDERS: ATTEND Anesthesiology Pain Medicine
DX: M47.22 Other spondylosis with radiculopathy, cervical region (principal); M48.02 Spinal stenosis, cervical region; G89.29 Other chronic pain; I10 Essential (primary) hypertension; M19.90 Unspecified osteoarthritis, unspecified site; Z98.890 Other specified postprocedural states; Z79.899 Other long term (current) drug therapy; Z79.01 Long term (current) use of anticoagulants; Z88.0 Allergy status to penicillin; Z88.8 Allergy status to other drugs, medicaments and biological substances

== ENCOUNTER → 2020-02-12 | Outpatient (CLI) | payer OTHER, MEDICARE ==
[~2020-02-12] VITALS: Ht 162.6 cm; Wt 57.2 kg
[2020-02-12 09:07] VITALS: BP 170/79
--- NOTE | 2020-02-12 09:20 | NUR ---
Pain Clinic Assessment: 1. History of Osteoarthritis: HANDS BACK History of Rheumatoid Arthritis: Not Applicable 2. Height: 5 ft. 4 in. 162.6 cm. Weight: 126.2 lb. oz. 57.244 kg. Patient's BMI: 21.7 3. Vital Signs: BP: 170/79 Pulse: 72 Resp: 14 Temp: 02 Sat: 100 ECG Mon: 4. Pain Intensity: 4 5. Fall Risk: Dizziness: N Needs help standing or walking: N Fallen in the last 3 months: N Fall risk comments: 6. Patient on Blood Thinner: *ELIQUIS 7. History of Hypertension: Y 8. Opioid Therapy greater than 6 weeks: N Opiate Contract Signed: 9. Risk Assessment Tool Provided: 0-low 10. Functional Assessment Tool: 11. Recreational Drug Use: Never Drug Type: Tobacco Use: Never Smoker Tobacco Type: Amount or Packs/day: How Many Years: Alcohol Use: No Frequency: Quant:
--- NOTE | 2020-02-13 11:20 | HPC ---
[facility] [address] [place] [address] PAIN MANAGEMENT CONSULTATION Name: TARIQ LEWIS Room #: REG [facility]#: [id number] Admission: 02/12/20 Attend Phys: Irving Riley DO Discharge: Date of : 43 Report #: [id number] THIS REPORT FOR: cc: Dunia Archer MD, Jennifer S. MD Johnson, James E. DO ~ DATE OF SERVICE: 02/12/2020 REFERRING PHYSICIAN: Dunia Archer MD CHIEF COMPLAINT: Neck pain, right upper extremity pain with paresthesias. HISTORY OF PRESENT ILLNESS: As you know, the patient is a very pleasant 74-year-old female returning in followup visit to undergo next in the series of cervical epidural injections under fluoroscopic guidance to address cervical radiculopathy. The patient reports pain of about 4/10 today. She states the previous cervical epidural injection provided 80% improvement in overall pain lasting for nearly 3 months. She unfortunately has had a recurrence of symptoms that began spontaneously now radiating from the neck to the right shoulder with intermittent shooting sensations running down the right arm. She returns for the next in the series of cervical epidural injections. She denies new injury or trauma that may have led to symptom reoccurrence. ALLERGIES: PENICILLIN, BETA BLOCKERS, ADHESIVE TAPE, LORATADINE and DILTIAZEM. CURRENT MEDICATIONS: See chart. SOCIAL HISTORY: The patient denies tobacco, alcohol, IV or illicit drug use. She retired in 2007. Unaccompanied today. IMAGING STUDIES: No new imaging available. PQRS: The patient has known arthritic changes of the cervical spine, lumbar spine, bilateral hands, bilateral shoulders. No rheumatoid arthritis. She is placing current pain score 4/10. She is not at fall risk, has not had a fall in last 3 months. She is on Eliquis, but has discontinued the medication 3 days prior to undergo a cervical epidural injection. She is treated for hypertension. She is not on any chronic opioids, has a low opiate addiction potential. Pain impact of mild interference of daily activities secondary to pain. PHYSICAL EXAMINATION: VITAL SIGNS: Blood pressure 170/79, pulse 72, respiratory rate 14 and unlabored. The patient is 100% on room air. Height 5 feet 4 inches tall, weight 126.2 pounds, BMI calculated 21.7. GENERAL: Well-developed, well-nourished, well-hydrated 74-year-old female, [place] [address] PAIN MANAGEMENT CONSULTATION Name: TARIQ LEWIS Room #: [facility]#: [id number] Admission: 02/12/20 Attend Phys: Irving Riley DO Discharge: Date of : 43 Report #: [id number] appearing stated age. She is placing current pain score 4/10. HEENT: Normocephalic and atraumatic. Pupils are equal, round and reactive. EXTREMITIES: Show no clubbing, no cyanosis, and no appreciable edema. MUSCULOSKELETAL: Upper extremity strength is symmetrical again today. Muscle bulk and tone is symmetrical in comparing left upper extremity to right. Cervical provocation testing with lateral flexion and rotation to the right causes intensification of pain. Spurling's test positive on the right, negative left. There does not appear to be any tactile sensation changes to light touch from C5-T1 dermatomes bilaterally. ASSESSMENT: 1. Cervical radiculopathy. 2. Cervical spondylosis with radiculopathy. 3. Neural foraminal stenosis of the cervical spine. 4. Central canal stenosis of the cervical spine. 5. Chronic intractable pain. PLAN: 1. The patient returns today in followup visit requesting to undergo cervical epidural injection under fluoroscopic guidance. She reports about an 80% improvement in overall pain lasting for 3 months with previous injection. Unfortunately, her symptoms have begun to recur. She is now placing a pain score around 4/10. She returns today in followup visit to undergo cervical epidural injection under fluoroscopic guidance. 2. The patient was advised risks and benefits of a cervical epidural injection. These risks include but are not necessarily limited to bleeding, bruising, infection, worsening pain, no relief of pain, also risk of temporary or permanent muscle weakness, temporary or permanent nerve damage, possible paralysis and . The patient states understood and wished to proceed. 3. No medication changes made at today's visit. The patient will continue current medical therapy as prior prescribed. 4. We will see the patient back in followup visit on an as needed basis for possible next in the series of cervical epidural injections. PROCEDURE NOTE DESCRIPTION OF PROCEDURE: C7-T1 cervical epidural steroid injection under fluoroscopic guidance. After obtaining written consent, the patient was taken back to fluoroscopy suite, placed in prone position with separate pillows under chest and forehead to decrease cervical lordosis. Skin overlying cervical area was then prepped and draped in aseptic fashion. C7-T1 cervical interspace was identified by AP fluoroscopy. Skin and subcutaneous tissue overlying target site injection anesthetized with 3 mL of 1% lidocaine. [address] [address] PAIN MANAGEMENT CONSULTATION Name: TARIQ LEWIS Room #: REG [facility]#: [id number] Admission: 02/12/20 Attend Phys: Irving Riley DO Discharge: Date of : 43 Report #: [id number] A 20-gauge 3-1/2 inch Tuohy needle advanced under fluoroscopic guidance towards the epidural space using a midline approach. Epidural space identified using loss of resistance to air technique. After negative aspiration for heme or cerebrospinal fluid, 1 mL of Omnipaque injected. Cervical epidurogram confirmed using both AP and oblique fluoroscopy. After negative aspiration for heme or cerebrospinal fluid, 5 mL of a solution containing 2 mL 40 mg per mL, 80 mg total triamcinolone along with 3 mL of lidocaine 1% injected slowly. Needle retracted fdc, flushed with 1 mL of 1% lidocaine, then removed. Sterile bandage placed over injection site. No new motor deficits present in the upper extremities following procedure. The patient tolerated procedure well, carefully escorted to recovery room in stable condition. No apparent complications. After meeting discharge criteria, the patient discharged home. <ELECTRONICALLY SIGNED> By: Irving Riley DO 02/13/20 1120 [id number] 1217 Irving Riley DO /nt
== END | disposition home or self-care (01) ==
LOC: PAIN 06:46
PROVIDERS: ATTEND Anesthesiology Pain Medicine
DX: M47.22 Other spondylosis with radiculopathy, cervical region (principal); M48.02 Spinal stenosis, cervical region; G89.29 Other chronic pain; I10 Essential (primary) hypertension; M19.90 Unspecified osteoarthritis, unspecified site; Z98.890 Other specified postprocedural states; Z79.899 Other long term (current) drug therapy; Z88.0 Allergy status to penicillin; Z88.8 Allergy status to other drugs, medicaments and biological substances

== ENCOUNTER → 2020-03-18 | Outpatient (CLI) | payer OTHER, MEDICARE ==
[~2020-03-18] VITALS: Ht 152.4 cm; Wt 58.4 kg
[2020-03-18 08:41] VITALS: BP 163/86
--- NOTE | 2020-03-18 08:50 | NUR ---
Pain Clinic Assessment: 1. History of Osteoarthritis: HANDS BACK History of Rheumatoid Arthritis: Not Applicable 2. Height: 5 ft. 2 in. 152.4 cm. Weight: 128.8 lb. oz. 58.423 kg. Patient's BMI: 25.2 3. Vital Signs: BP: 163/86 Pulse: 71 Resp: 16 Temp: 02 Sat: 100 ECG Mon: 4. Pain Intensity: 5 5. Fall Risk: Dizziness: N Needs help standing or walking: N Fallen in the last 3 months: N Fall risk comments: 6. Patient on Blood Thinner: *ELIQUIS 7. History of Hypertension: Y 8. Opioid Therapy greater than 6 weeks: N Opiate Contract Signed: 9. Risk Assessment Tool Provided: 0-low 10. Functional Assessment Tool: 11. Recreational Drug Use: Never Drug Type: Tobacco Use: Never Smoker Tobacco Type: Amount or Packs/day: How Many Years: Alcohol Use: No Frequency: Quant:
--- NOTE | 2020-03-19 13:35 | HPC ---
[facility] [place] [address] PAIN MANAGEMENT CONSULTATION Name: TARIQ LEWIS Room #: REG [facility].#: [id number] Admission: 03/18/20 Attend Phys: Irving Riley DO Discharge: Date of : 43 Report #: [id number] THIS REPORT FOR: cc: Dunia Archer MD, Jennifer S. MD Johnson, James E. DO ~ DATE OF SERVICE: 03/18/2020 CHIEF COMPLAINT: Low back pain, bilateral lower extremity pain and paresthesias. HISTORY OF PRESENT ILLNESS: As you know, the patient is a very pleasant 74-year-old female who suffers from both cervical radiculopathy and lumbar radiculopathy. The patient has undergone Vertiflex to address the L4-L5 level, which had severe spinal stenosis. The patient has noted some improvement in symptoms with that implantation. She continues to experience right foot numbness and tingling, which is consistent for her, but also is experiencing left lower extremity pain and paresthesias, which have progressed. She returns today in followup visit requesting a lumbar epidural injection under fluoroscopic guidance to address residual lumbar radicular symptoms. She is placing her current pain score at 5/10. She has discontinued her Eliquis 3 days prior to today's appointment to undergo the procedure. She has denied injury or trauma that may have led to symptom reoccurrence. She has been followed by Dr. Aguilar for the Vertiflex procedure and postoperative evaluations and has been released from their care. She returns for the next in the series of epidural injections. ALLERGIES: PENICILLIN, BETA BLOCKERS, ADHESIVE TAPE, LORATADINE AND DILTIAZEM. CURRENT MEDICATIONS: Metoprolol, flecainide, acetaminophen, Eliquis, atorvastatin. SOCIAL HISTORY: The patient denies tobacco, alcohol, IV or illicit drug use. She retired in 2007. She is unaccompanied at today's visit. PQRS: The patient has known arthritic changes of the cervical spine, lumbar spine, bilateral hands, bilateral shoulders. No rheumatoid arthritis. She is placing pain intensity today at 5/10. She is not a fall risk, has not had a fall in last 3 months. She is on blood thinners in the form of Eliquis, but discontinued the medication 3 days prior to today's procedure. She is treated for hypertension. She is not on chronic opioids, has a low opiate addiction potential based on our assessment tool. Pain impact is 18 of 70, mild interference of daily activities secondary to pain. IMAGING: No new imaging. [address] [address] PAIN MANAGEMENT CONSULTATION Name: DEBBIETARIQ Room #: REG [facility].#: [id number] Admission: 03/18/20 Attend Phys: Irving Riley DO Discharge: Date of : 43 Report #: [id number] PHYSICAL EXAMINATION: VITAL SIGNS: Blood pressure 163/86, pulse 71, respiratory rate 16 and unlabored. The patient is 100% on room air. Height 5 feet 2 inches tall, weight 128.8 pounds and BMI calculated 25.2. GENERAL: Well-developed, well-nourished, well-hydrated 74-year-old female, appearing her stated age, rating pain today 5/10. HEENT: Normocephalic, atraumatic. Pupils are equal, round and reactive. The patient is wearing a mask in compliance with COVID-19 regulations. EXTREMITIES: Show no clubbing, no cyanosis. No appreciable edema. MUSCULOSKELETAL: Lower extremity strength appears symmetrical, but deconditioned. Muscle bulk and tone is symmetrical comparing lower extremities. There is no noted atrophy. Deep tendon reflexes are symmetrical, but diminished bilaterally. Seated straight leg raising negative. Supine straight leg raising positive. Eder's test is negative. Modified Gaenslen's positive for axial low back pain. Gait is antalgic favoring left lower extremity today. ASSESSMENT: 1. Symptomatic lumbar radiculopathy. 2. Central canal stenosis of the lumbar spine. 3. Displacement of lumbar intervertebral disk with radiculopathy. 4. Lumbosacral spondylosis with radiculopathy. 5. Lumbar degeneration. 6. Chronic intractable pain. PLAN: 1. The patient returns today in followup visit to undergo lumbar epidural injection under fluoroscopic guidance. She is hopeful to see improvement in her 5/10 pain. She has undergone Vertiflex at the L4-L5 level to address lumbar central canal stenosis with some improvement in symptoms. Unfortunately, she continues to experience right lower extremity paresthesias and left lower extremity pain. She returns to undergo a lumbar epidural injection in hopes of improving the symptoms further. She has been advised risks and benefits of the procedure, states understood and wished to proceed. 2. The patient states that the cervical epidural injection provided 02/12/2020 continues to provide good benefit of 75% improvement in overall pain. She is doing very well from a cervical radicular standpoint. 3. No medication changes made at today's visit. The patient will continue current medical therapy as prior prescribed. We have requested the patient restart her Eliquis this evening and continue her dosing as directed by the prescribing physician. 4. We plan to see the patient back in followup visit on an as needed basis for possible interventional treatments. DESCRIPTION OF PROCEDURE: L5-S1 intralaminar epidural steroid injection under fluoroscopic guidance. [facility] [address] [place] [address] PAIN MANAGEMENT CONSULTATION Name: TARIQ LEWIS [facility] [id number] Admission: 03/18/20 Attend Phys: Irving Riley DO Discharge: Date of : 43 Report #: [id number] After obtaining written consent, the patient was taken back to fluoroscopy suite, placed in prone position with pillow under abdomen to decrease lumbar lordosis. Skin overlying lumbosacral area then prepped and draped in aseptic fashion. The L5-S1 vertebral interspace was identified by AP fluoroscopy. Skin and subcutaneous tissue overlying target site of injection anesthetized with 3 mL of 1% lidocaine. A 20-gauge 3-1/2 inch Tuohy needle advanced under fluoroscopic guidance towards the epidural space using a left paramedian approach. Epidural space identified using loss of resistance to air technique. After negative aspiration for heme or cerebrospinal fluid, 1 mL of Omnipaque injected. Lumbar epidurogram confirmed using both AP and lateral fluoroscopy. After negative aspiration for heme or cerebrospinal fluid, 5 mL of a solution containing 2 mL 40 mg per mL, 80 mg total triamcinolone along with 3 mL of lidocaine 1% injected slowly. Needle retracted [facility], flushed with 1 mL of 1% lidocaine and then removed. Sterile bandage placed over injection site. No new motor deficits present in the lower extremities following procedure. The patient tolerated procedure well, carefully escorted to recovery room in stable condition. No apparent complications. After meeting discharge criteria, the patient discharged home. <ELECTRONICALLY SIGNED> By: Irving Riley DO 03/19/20 [id number] 1044 Irving Riley DO /nt
== END | disposition home or self-care (01) ==
LOC: PAIN 06:44
PROVIDERS: ATTEND Anesthesiology Pain Medicine
DX: M51.16 Intervertebral disc disorders with radiculopathy, lumbar region (principal); M47.27 Other spondylosis with radiculopathy, lumbosacral region; M48.061 Spinal stenosis, lumbar region without neurogenic claudication; G89.29 Other chronic pain; I10 Essential (primary) hypertension; M19.90 Unspecified osteoarthritis, unspecified site; Z98.890 Other specified postprocedural states; Z79.899 Other long term (current) drug therapy; Z79.01 Long term (current) use of anticoagulants; Z88.0 Allergy status to penicillin; Z88.8 Allergy status to other drugs, medicaments and biological substances

== ENCOUNTER → 2020-06-25 | Outpatient (CLI) | payer OTHER, MEDICARE ==
[~2020-06-25] VITALS: Ht 157.5 cm; Wt 62.0 kg
[2020-06-25 09:15] VITALS: BP 178/85
--- NOTE | 2020-06-25 09:23 | NUR ---
Pain Clinic Assessment: 1. History of Osteoarthritis: HANDS BACK History of Rheumatoid Arthritis: Not Applicable 2. Height: 5 ft. 2 in. 157.5 cm. Weight: 136.6 lb. oz. 61.961 kg. Patient's BMI: 25.0 3. Vital Signs: BP: 178/85 Pulse: 73 Resp: 16 Temp: 02 Sat: 98 ECG Mon: 4. Pain Intensity: 3 5. Fall Risk: Dizziness: N Needs help standing or walking: N Fallen in the last 3 months: N Fall risk comments: 6. Patient on Blood Thinner: *ELIQUIS 7. History of Hypertension: Y 8. Opioid Therapy greater than 6 weeks: N Opiate Contract Signed: 9. Risk Assessment Tool Provided: 0-low 10. Functional Assessment Tool: 11. Recreational Drug Use: Never Drug Type: Tobacco Use: Never Smoker Tobacco Type: Amount or Packs/day: How Many Years: Alcohol Use: No Frequency: Quant:
--- NOTE | 2020-07-01 07:49 | HPC ---
[facility] [address] [place] [address] PAIN MANAGEMENT CONSULTATION Name: TARIQ LEWIS Room #: REG [facility].#: [id number] Admission: 06/25/20 Attend Phys: Irving Riley DO Discharge: Date of : 43 Report #: [id number] THIS REPORT FOR: cc: Dunia Archer MD, Jennifer S. MD Johnson, James E. DO ~ DOC #: [id number] cc: MD Irving Cuenca DO DATE OF SERVICE: 06/25/2020 REFERRING PHYSICIAN: Dunia Archer MD CHIEF COMPLAINT: Neck pain, bilateral upper extremity pain with paresthesias. HISTORY OF PRESENT ILLNESS: As you know, the patient is a 74-year-old female with longstanding history of cervical particular myelopathy, undergoing intermittent cervical epidural injections with good benefit. Most recent cervical epidural injection gave on 02/12/2020 with good effects. The patient reports that pain relief from that injection was 50-60% lasting until just recently with a slow and progressive return of symptoms. The patient states that her symptoms began more as an aching sensation in the cervical spine and then becomes more of a burning sensation, greater on the right than the left and then progresses into paresthesias. She returns today in followup visit to undergo cervical epidural injection under fluoroscopic guidance to address cervical radiculopathy at the level of 10. She has stopped her Eliquis 3 days ago in preparation for today's procedure. The patient denies any specific injury or trauma that may have led to symptom reoccurrence. There has been no changes in the patient's medication management that would preclude her from undergoing an epidural injection today. ALLERGIES: PENICILLIN, BETA-BLOCKERS, ADHESIVE TAPE, LORATADINE, DILTIAZEM. MEDICATIONS: See chart. SOCIAL HISTORY: Unchanged. She denies tobacco, alcohol or IV or illicit drug use. She retired in 2007. IMAGING: No new imaging available. PQRS: The patient has known arthritic changes of the cervical spine, lumbar spine, bilateral hands, and bilateral shoulders. No rheumatoid arthritis. She was placing current pain score 3/10. She is not a fall risk, does not have fall in last 3 months, but she is on blood thinners in the form of Eliquis, discontinuing the medication three days ago. She is treated for hypertension. She is not on any chronic opioids. Has a little bit of addiction potential. [address] [address] PAIN MANAGEMENT CONSULTATION Name: TARIQ LEWIS Room #: REG [facility]#: [id number] Admission: 06/25/20 Attend Phys: Irving Riley DO Discharge: Date of : 43 Report #: [id number] Pain impact tool indicating mild to moderate interference of daily activities secondary to pain. PHYSICAL EXAMINATION: VITAL SIGNS: Blood pressure 178/85, pulse 73, respiratory rate 16 and unlabored. The patient is 98% on room air, height 5 feet 2 inches tall, weight 136.6 pounds, BMI calculated 25.0. GENERAL: Well-developed, well-nourished, well-hydrated, 74-year-old female appearing stated age. The pain is rated around 3/10. HEENT: Normocephalic, atraumatic. Pupils are round and responsive. MUSCULOSKELETAL: The patient is wearing a mask in compliance with COVID-19 regulations. Upper extremity strength is symmetrical, but deconditioned noted bilaterally. Deep tendon reflexes are symmetrical, but again diminished at 1+/4 bilaterally. Spurling's test is positive on the right, negative left. Cervical provocation testing is met with a slight increase in pain and mild restriction of motion. ASSESSMENT: 1. Cervical radiculopathy. 2. Cervical spondylosis with radiculopathy. 3. Neural foraminal stenosis of the cervical spine. 4. Central canal stenosis of the cervical spine. 5. Chronic intractable pain. PLAN: 1. The patient returns today in followup visit requesting to undergo a cervical epidural injection under fluoroscopic guidance. She reports greater than 50-60% improvement in overall pain with the previous injection. She is hopeful to see similar improvement today. She has been advised the risks and benefits of the procedure, states she understood and wished to proceed. 2. No medication changes made at today's visit. The patient will continue current medical therapy as prescribed. 3. We plan to see the patient back for a followup visit on as needed basis for next in the series of epidural injections. We are hopeful that cervical epidural injection provided today will provide similar benefit as she is seen with previous injections. We will see her back in followup visit on an as needed basis. PROCEDURE NOTE DESCRIPTION OF PROCEDURE: C7-T1 cervical epidural steroid injection under fluoroscopic guidance. After obtaining written consent, the patient was taken back to fluoroscopy suite, placed in a prone position with separate pillows under chest and forehead to decrease cervical lordosis. Skin overlying cervical area was then prepped [address] [address] PAIN MANAGEMENT CONSULTATION Name: TARIQ LEWIS Room #: REG [facility]#: [id number] Admission: 06/25/20 Attend Phys: Irving Riley DO Discharge: Date of : 43 Report #: [id number] and draped in aseptic fashion. The C7-T1 cervical interspace identified by AP fluoroscopy. Skin and subcutaneous tissue overlying the target site of injection was anesthetized with 3 mL of 1% lidocaine. A 20 gauge 3-1/2 inch Tuohy needle was advanced under fluoroscopic guidance towards the epidural space using a right paramedian approach. Epidural space was identified using loss of resistance to air technique. After negative aspiration for heme or cerebrospinal fluid, 1 mL of Omnipaque injected. A cervical epidurogram was confirmed using both AP and lateral fluoroscopy. After negative aspiration for heme or cerebrospinal fluid, 5 mL of solution containing 2 mL of 40 mg per mL 80 mg total triamcinolone along with 3 mL of lidocaine, 1% injected slowly. Needle retracted half-way flushed with 1 mL of 1% lidocaine and then removed. Sterile bandage placed over injection site. No new motor deficits present in the upper extremities following the procedure. The patient tolerated the procedure well, carefully escorted to Recovery Room in stable condition. No apparent complications. After meeting discharge criteria, the patient is discharged home. Irving Riley DO JEJ/DHI <ELECTRONICALLY SIGNED> By: Irving Riley DO 07/01/20 0749 [id number] Irving Riley DO /nt
== END | disposition home or self-care (01) ==
LOC: PAIN 08:13
PROVIDERS: ATTEND Anesthesiology Pain Medicine
DX: M47.22 Other spondylosis with radiculopathy, cervical region (principal); M48.02 Spinal stenosis, cervical region; G89.29 Other chronic pain; I10 Essential (primary) hypertension; M19.90 Unspecified osteoarthritis, unspecified site; Z98.890 Other specified postprocedural states; Z79.899 Other long term (current) drug therapy; Z79.01 Long term (current) use of anticoagulants; Z88.0 Allergy status to penicillin; Z88.8 Allergy status to other drugs, medicaments and biological substances

== ENCOUNTER → 2020-09-10 | Outpatient (CLI) | payer OTHER, MEDICARE ==
[~2020-09-10] VITALS: Ht 157.5 cm; Wt 65.3 kg
[2020-09-10 08:58] VITALS: BP 152/68
--- NOTE | 2020-09-10 09:57 | NUR ---
Pain Clinic Assessment: 1. History of Osteoarthritis: HANDS BACK History of Rheumatoid Arthritis: Not Applicable 2. Height: 5 ft. 2 in. 157.5 cm. Weight: 144.0 lb. oz. 65.318 kg. Patient's BMI: 26.3 3. Vital Signs: BP: 152/68 Pulse: 71 Resp: 14 Temp: 02 Sat: 99 ECG Mon: 4. Pain Intensity: 5 5. Fall Risk: Dizziness: N Needs help standing or walking: N Fallen in the last 3 months: N Fall risk comments: 6. Patient on Blood Thinner: *ELIQUIS 7. History of Hypertension: Y 8. Opioid Therapy greater than 6 weeks: N Opiate Contract Signed: 9. Risk Assessment Tool Provided: 0-low 10. Functional Assessment Tool: 11. Recreational Drug Use: Never Drug Type: Tobacco Use: Never Smoker Tobacco Type: Amount or Packs/day: How Many Years: Alcohol Use: No Frequency: Quant:
--- NOTE | 2020-09-12 12:10 | HPC ---
[facility] [place] [address] [place] [address] PAIN MANAGEMENT CONSULTATION Name: TARIQ LEWIS Room #: REG [facility].#: [id number] Admission: 09/10/20 Attend Phys: Irving Riley DO Discharge: Date of : 43 Report #: [id number] THIS REPORT FOR: cc: Dunia Archer MD, Jennifer S. MD Johnson, James E. DO ~ cc: Dunia Archer MD DATE OF SERVICE: 09/10/2020 REFERRING PHYSICIAN: Dr. Dunia Archer. CHIEF COMPLAINT: Neck pain, right upper extremity pain and paresthesias. HISTORY OF PRESENT ILLNESS: As you know, the patient is a pleasant 75-year-old female who suffers from chronic cervical radiculopathy, which has been amenable two epidural injections in the past. She underwent a cervical epidural injection in January, which provided improvement in symptoms lasting until just recently. She reports a 60% improvement in overall pain. She has had a slow and progressive return of symptoms for which she now places a pain score of 5/10. She is denying new injury or trauma that may have led to symptom development. 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 She returns today requesting a cervical epidural injection under fluoroscopic guidance. ALLERGIES: BETA-BLOCKERS, PENICILLIN, CIPROFLOXACIN, ADHESIVE TAPE, LORATADINE AND DILTIAZEM. CURRENT MEDICATIONS: Metoprolol 25 mg once a day, flecainide 100 mg once a day, acetaminophen 500 mg 3 times a day, Eliquis 5 mg b.i.d., atorvastatin 20 mg per day. SOCIAL HISTORY: The patient denies tobacco, alcohol or IV or illicit drug use. She is retired, retired years ago, unaccompanied today. IMAGING STUDIES: No new imaging available. PQRS: The patient has known arthritic changes of the cervical spine, lumbar spine, bilateral hands and knees. No rheumatoid arthritis. She is placing pain intensity of 5/10. She is not at fall risk, has not had a fall in last 3 months. She is on the blood thinner in the form of Eliquis, but discontinued the medication 3 days ago in preparation for today's procedure. She is treated for hypertension. She is not on chronic opioids, has a low opioid addiction potential based on our assessment tool. Pain impact , mild interference of daily activities secondary to pain. [address] [address] PAIN MANAGEMENT CONSULTATION Name: TARIQ LEWIS Room #: REG [facility] Aniceto#: [id number] Admission: 09/10/20 Attend Phys: Irving Riley DO Discharge: Date of : 43 Report #: [id number] PHYSICAL EXAMINATION: VITAL SIGNS: Blood pressure 152/68, pulse 71, respiratory rate 14 and unlabored. The patient is 99% on room air. Height 5 feet 2 inches tall, weight 144 pounds, BMI calculated 26.3. GENERAL: Well-developed, well-nourished, well-hydrated 75-year-old female appearing stated age, pain is rated today 5/10. HEENT: Normocephalic and atraumatic. Pupils are equal, round and responsive to light. Extraocular muscles are intact. Speech is fluent. The patient is wearing a mask in compliance with COVID-19 regulations. EXTREMITIES: Show no clubbing, no cyanosis and no edema. MUSCULOSKELETAL: Upper extremity strength is equal and symmetrical, but deconditioned. 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 Deep tendon reflexes remain diminished, but symmetrical 1+/4 bilaterally at biceps, brachialis and triceps. Spurling's test positive on the right, negative left. Cervical provocation testing including rotation, lateral flexion all intensify cervical pain. ASSESSMENT: 1. Cervical radiculopathy. 2. Cervical spondylosis with radiculopathy. 3. Neural foraminal stenosis of the cervical spine. 4. Central canal stenosis of the cervical spine. 5. Chronic intractable pain. PLAN: 1. The patient returns today in followup visit requesting to undergo next in the series of cervical epidural injections. She reports pain score of 5/10 today. She states the previous epidural injection gave 60% improvement in overall pain lasting until just recently where she has had a slow and progressive return of symptoms. The patient denies injury or trauma. She returns requesting a cervical epidural injection to address recurrent cervical radiculopathy. The patient has been advised risks and benefits of the procedure, states understood and wished to proceed. 2. No medication changes made at today's visit. The patient will continue current medical therapy as prior prescribed. 3. We plan to see the patient back in followup visit on an as needed basis for the next in the series of cervical epidural injections. PROCEDURE NOTE DESCRIPTION OF PROCEDURE: C7-T1 cervical epidural steroid injection under fluoroscopic guidance. After obtaining written consent, the patient was taken back to fluoroscopy suite, placed in prone position with a separate pillows under chest and forehead [address] [address] PAIN MANAGEMENT CONSULTATION Name: TARIQ LEWIS Room #: REG [facility]#: [id number] Admission: 09/10/20 Attend Phys: Irving Riley DO Discharge: Date of : 43 Report #: [id number] to decrease cervical lordosis. Skin overlying cervical area then prepped and draped in aseptic fashion. C7-T1 cervical interspace identified by AP fluoroscopy. Skin and subcutaneous tissue overlying target site injection anesthetized with 3 mL of 1% lidocaine. A 20 gauge 3-1/2 inch Tuohy needle advanced under fluoroscopic guidance towards the epidural space using midline approach. Epidural space identified using loss of resistance to air technique. After negative aspiration for heme or cerebrospinal fluid, 1 mL of Omnipaque injected. A cervical epidurogram was confirmed using both AP and oblique fluoroscopy. After negative aspiration for heme or cerebrospinal fluid, 5 mL solution containing 2 mL 40 mg per mL 80 mg total triamcinolone along with 3 mL of lidocaine, 1% injected slowly. Needle retracted long term flushed with 1 mL of 1% lidocaine and then removed. Sterile bandage placed over injection site. No new motor deficits present in lower extremities and upper extremities following procedure. The patient tolerated the procedure well, carefully escorted to recovery room in stable condition. No apparent complications. After meeting discharge criteria, the patient discharged home. <ELECTRONICALLY SIGNED> By: Irving Riley DO 09/12/20 1210 0939 [id number] Irving Riley DO /nt
== END | disposition home or self-care (01) ==
LOC: PAIN 07:25
PROVIDERS: ATTEND Anesthesiology Pain Medicine
DX: M47.22 Other spondylosis with radiculopathy, cervical region (principal); M48.02 Spinal stenosis, cervical region; G89.29 Other chronic pain; I10 Essential (primary) hypertension; M19.90 Unspecified osteoarthritis, unspecified site; Z98.890 Other specified postprocedural states; Z79.899 Other long term (current) drug therapy; Z79.01 Long term (current) use of anticoagulants; Z88.0 Allergy status to penicillin

== ENCOUNTER → 2020-10-14 | Outpatient (CLI) | payer OTHER, MEDICARE ==
[~2020-10-14] VITALS: Ht 157.5 cm; Wt 66.4 kg
[~2020-10-14] MED LIST changes: +NORVASC 2.5 MG2.5 M1 PO
--- NOTE | ~2020-10-14 | HPC ---
[facility] [place] [address] PAIN MANAGEMENT CONSULTATION Name: TARIQ LEWIS Room #: REG [facility]#: [id number] Admission: 10/14/20 Attend Phys: Irving Riley DO Discharge: Date of : 43 Report #: [id number] THIS REPORT FOR: cc: Dunia Archer MD, Jennifer S. MD Johnson, James E. DO ~ cc: Dunia Archer MD DATE OF SERVICE: 10/14/2020 CHIEF COMPLAINT: Low back pain, bilateral lower extremity pain with paresthesias. HISTORY OF PRESENT ILLNESS: As you know, the patient is a very pleasant 75-year-old female returning in followup visit to undergo lumbar epidural injection under fluoroscopic guidance. The patient did very well with previous cervical epidural injection performed on 09/10/2020 with a reported 75% improvement in overall pain. She returns today to address low back symptoms with a lumbar epidural injection. She is placing pain at a 5/10. The patient denies any specific injury or trauma that may have led to symptom reoccurrence. There has been no changes in medication management that would preclude the patient from undergoing an epidural injection today. ALLERGIES: BETA BLOCKERS, PENICILLIN, CIPROFLOXACIN, ADHESIVE TAPE, LORATADINE, DILTIAZEM. CURRENT MEDICATIONS: Metoprolol, flecainide, acetaminophen, atorvastatin, Eliquis held for 3 days. SOCIAL HISTORY: The patient denies tobacco, alcohol or illicit drug use. She is retired, retired years ago, unaccompanied today. IMAGING: No new imaging available. PQRS: The patient has known arthritic changes of the cervical spine, lumbar spine, bilateral hands and knees. No rheumatoid arthritis. She is placing current pain intensity at 5/10, not a fall risk, has not had a fall in last 3 months. She is on blood thinners in the form of Eliquis, but discontinued the medication 3 days ago in preparation for today's lumbar epidural injection. She is treated for hypertension. She is not on chronic opioids, has a low opioid addiction potential based on our assessment tool. Pain impact remains at 18/70, mild interference of daily activities secondary to pain. PHYSICAL EXAMINATION: VITAL SIGNS: Blood pressure 143/79, pulse 70, respiratory rate 16 and unlabored. The patient 99% on room air. Height 5 feet 2 inches tall, weight 146.4 pounds, BMI calculated 26.8. [facility] [address] [place] [address] PAIN MANAGEMENT CONSULTATION Name: TARIQ LEWIS Room #: REG [facility]#: [id number] Admission: 10/14/20 Attend Phys: Irving Riley DO Discharge: Date of : 43 Report #: [id number] GENERAL: Well-developed, well-nourished, well-hydrated 75-year-old female appearing stated age, pain is rated around 5/10. HEENT: Normocephalic, atraumatic. Pupils equal, round and responsive. Speech is fluent. She is wearing a mask in compliance with COVID-19 regulations. EXTREMITIES: Show no clubbing, no cyanosis and no edema. MUSCULOSKELETAL: Lower extremity strength appears symmetrical 5/5. Deconditioning noted bilaterally in the lower extremities. Muscle bulk and tone is symmetrical. Seated straight leg raising negative. Supine straight leg raising is positive. Fabere's test remains negative. Modified Gaenslen's positive for axial low back pain. Gait appears antalgic, favoring left lower extremity. ASSESSMENT: 1. Symptomatic lumbar radiculopathy. 2. Central canal stenosis of lumbar spine. 3. Displacement of lumbar intervertebral disk with radiculopathy. 4. Lumbosacral spondylosis with radiculopathy. 5. Lumbar degeneration. 6. Chronic intractable pain. PLAN: 1. The patient returns today in followup visit requesting to undergo lumbar epidural injection under fluoroscopic guidance. She did very well with a cervical epidural injection provided in August with 75% improvement in overall pain that is ongoing. She is very pleased with response to that injection. Returning today to address her lumbar radicular symptoms. She has been advised risks and benefits of the procedure, states understood and wished to proceed. 2. No medication changes made at today's visit. The patient will continue current medical therapy as prior prescribed. 3. We plan to see the patient back in followup visit on an as needed basis to address lumbar radiculopathy. We are hopeful the patient will once again see good benefit with a lumbar epidural injection with improvement in her symptoms. PROCEDURE NOTE DESCRIPTION OF PROCEDURE: L5-S1 interlaminar epidural steroid injection under fluoroscopic guidance. After obtaining written consent, the patient was taken back to fluoroscopy suite, placed in prone position with pillow under abdomen to decrease lumbar lordosis. Skin overlying lumbosacral area prepped and draped in aseptic fashion. The L5-S1 vertebral interspace identified by AP fluoroscopy. Skin and subcutaneous tissue overlying target site injection anesthetized with 3 mL 1% lidocaine. A 20 gauge 3-1/2 inch Tuohy needle advanced under fluoroscopic guidance towards the epidural space using a parasagittal approach. Epidural space identified [address] [address] PAIN MANAGEMENT CONSULTATION Name: TARIQ LEWIS Room #: REG [facility]#: [id number] Admission: 10/14/20 Attend Phys: Irving Riley DO Discharge: Date of : 43 Report #: [id number] using loss of resistance to air technique. After negative aspiration for heme or cerebrospinal fluid, 1 mL of Omnipaque injected. Lumbar epidurogram was confirmed using both AP and lateral fluoroscopy. After negative aspiration for heme or cerebrospinal fluid, 5 mL solution containing 2 mL 40 mg per mL 80 mg total triamcinolone along with 3 mL of lidocaine, 1% injected slowly. Needle retracted approximately intermediate flushed with 1 mL of 1% lidocaine, then removed. Sterile bandage placed over injection site. No new motor deficits present in the lower extremity following procedure. The patient tolerated the procedure well, carefully escorted to recovery room in stable condition. No apparent complications. After meeting discharge criteria, the patient discharged home. By: [id number] Irving Riley DO /nt
[2020-10-14 09:03] VITALS: BP 143/79
--- NOTE | 2020-10-14 09:31 | NUR ---
Pain Clinic Assessment: 1. History of Osteoarthritis: HANDS BACK History of Rheumatoid Arthritis: Not Applicable 2. Height: 5 ft. 2 in. 157.5 cm. Weight: 146.4 lb. oz. 66.407 kg. Patient's BMI: 26.8 3. Vital Signs: BP: 143/79 Pulse: 70 Resp: 16 Temp: 02 Sat: 99 ECG Mon: 4. Pain Intensity: 5 5. Fall Risk: Dizziness: N Needs help standing or walking: N Fallen in the last 3 months: N Fall risk comments: 6. Patient on Blood Thinner: *ELIQUIS 7. History of Hypertension: Y 8. Opioid Therapy greater than 6 weeks: N Opiate Contract Signed: 9. Risk Assessment Tool Provided: 0-low 10. Functional Assessment Tool: 11. Recreational Drug Use: Never Drug Type: Tobacco Use: Never Smoker Tobacco Type: Amount or Packs/day: How Many Years: Alcohol Use: No Frequency: Quant:
== END | disposition home or self-care (01) ==
LOC: PAIN 07:04
PROVIDERS: ATTEND Anesthesiology Pain Medicine
DX: M51.16 Intervertebral disc disorders with radiculopathy, lumbar region (principal); M47.27 Other spondylosis with radiculopathy, lumbosacral region; M48.061 Spinal stenosis, lumbar region without neurogenic claudication; Z98.890 Other specified postprocedural states; Z79.899 Other long term (current) drug therapy

== ENCOUNTER → 2021-02-03 | Outpatient (CLI) | payer OTHER, MEDICARE ==
[~2021-02-03] VITALS: Ht 157.5 cm; Wt 68.1 kg
[~2021-02-03] MED LIST changes: +FOSAMAX 70 MG T70 MG PO
[2021-02-03 09:35] VITALS: BP 159/79
--- NOTE | 2021-02-03 09:36 | NUR ---
Pain Clinic Assessment: 1. History of Osteoarthritis: HANDS BACK History of Rheumatoid Arthritis: Not Applicable 2. Height: 5 ft. 2 in. 157.5 cm. Weight: 150.2 lb. oz. 68.130 kg. Patient's BMI: 27.5 3. Vital Signs: BP: 159/79 Pulse: 76 Resp: 16 Temp: 02 Sat: 98 ECG Mon: 4. Pain Intensity: 7 5. Fall Risk: Dizziness: N Needs help standing or walking: N Fallen in the last 3 months: N Fall risk comments: 6. Patient on Blood Thinner: *ELIQUIS 7. History of Hypertension: Y 8. Opioid Therapy greater than 6 weeks: N Opiate Contract Signed: 9. Risk Assessment Tool Provided: 0-low 10. Functional Assessment Tool: 11. Recreational Drug Use: Never Drug Type: Tobacco Use: Never Smoker Tobacco Type: Amount or Packs/day: How Many Years: Alcohol Use: No Frequency: Quant:
--- NOTE | 2021-02-03 13:02 | HPC ---
[facility] [place] [address] PAIN MANAGEMENT CONSULTATION Name: TARIQ LEWIS Room #: [facility].#: [id number] Admission: 02/03/21 Attend Phys: Irving Riley DO Discharge: Date of : 43 Report #: [id number] THIS REPORT FOR: cc: Dunia Archer MD, Jennifer S. MD Johnson, James E. DO ~ cc: Dunia Archer MD DATE OF SERVICE: 02/03/2021 REFERRING PHYSICIAN: Dunia Archer MD CHIEF COMPLAINT: Neck pain, right upper extremity pain with paresthesias. HISTORY OF PRESENT ILLNESS: As you know, the patient is a pleasant 75-year-old female returning today in followup visit with recurrent neck pain, right upper extremity pain with paresthesias. The patient states pain has slowly and progressively returned over the past couple of weeks. She has suffered no injury or trauma. She reports improvement in symptoms with the previous cervical epidural injection of greater than 50-60%. She has been doing very well until just recently where her symptoms recurred. She has stopped her Eliquis in preparation for today's procedure. She has had no other changes in medication management that would preclude her from undergoing the requested injection today. ALLERGIES: BETA BLOCKERS, PENICILLIN, CIPROFLOXACIN, ADHESIVE TAPE, LORATADINE AND DILTIAZEM. CURRENT MEDICATIONS: Alendronate 70 mg once a week, amlodipine 2.5 mg once a day, metoprolol 25 mg once a day, flecainide 100 mg b.i.d., atorvastatin 20 mg once a day, Eliquis 5 mg b.i.d., held for the past 3 days. SOCIAL HISTORY: The patient denies tobacco, alcohol or IV or illicit drug use. She is retired, retired years ago, accompanied by her sister present in room today. IMAGING: No new imaging available. PQRS: The patient has known arthritic changes of cervical spine, lumbar spine, bilateral hips and knees. No rheumatoid arthritis. Pain intensity is now rated at a 7/10. She is not a fall risk, has not had a fall in last 3 months. She is on blood thinners in the form of Eliquis, but discontinued the medication 3 days ago in preparation for the procedure. She is treated for hypertension. She is on no opioids, has a low opioid addiction potential based on assessment tool. Pain impact is 18/70, mild interference of daily activities secondary to pain. PHYSICAL EXAMINATION: [facility] [address] [place] [address] PAIN MANAGEMENT CONSULTATION Name: TARIQ LEWIS Room #: [facility]#: [id number] Admission: 02/03/21 Attend Phys: Irving Riley DO Discharge: Date of : 43 Report #: [id number] VITAL SIGNS: Blood pressure 159/79, pulse 76, respiratory rate 16 and unlabored. The patient 98% on room air. Height 5 feet 2 inches tall, weight 150.2 pounds, BMI calculated 27.5. GENERAL: Well-developed, well-nourished, well-hydrated 75-year-old female appearing stated age, pain is rated today at 7/10. HEENT: Normocephalic, atraumatic. Pupils are round. She is wearing a mask in compliance with COVID-19 regulations and hospital policy. EXTREMITIES: Show no clubbing, no cyanosis. No appreciable edema. MUSCULOSKELETAL: Upper extremity strength equal and symmetrical 5/5, community development technician strength is also 5/5. Deep tendon reflexes remain diminished as previous evaluations, 1+/4. Spurling's test is positive right, negative left. Cervical provocation testing including rotation, lateral, flexion and extension to the right exacerbates symptoms. ASSESSMENT: 1. Cervical radiculopathy. 2. Cervical spondylosis with radiculopathy. 3. Neural foraminal stenosis of the cervical spine. 4. Central canal stenosis of cervical spine. 5. Chronic intractable pain. PLAN: 1. The patient returns today in followup visit with a pain level of 7/10 involving the neck and right upper extremity. She returns requesting a cervical epidural injection under fluoroscopic guidance. The most recent cervical epidural injection gave greater than 50% improvement in overall pain until just recently. She has had a slow and progressive return of symptoms without inciting injury or trauma. She has been advised the risks and benefits of a cervical epidural injection, states she understood and wished to proceed. 2. No medication changes made at today's visit. The patient will continue current medical therapy as prior prescribed. 3. We plan to see the patient back in followup visit on an as needed basis for the next in the series of cervical epidural injections. We are hopeful the patient will once again see good and prolonged benefit with the injection provided today. PROCEDURE NOTE DESCRIPTION OF PROCEDURE: C7-T1 cervical epidural steroid injection under fluoroscopic guidance. After obtaining written consent, the patient was taken back to fluoroscopy suite, placed in prone position with separate pillows under chest and forehead to decrease cervical lordosis. Skin overlying the cervical area then prepped and draped in aseptic fashion. C7-T1 cervical interspace was identified by AP fluoroscopy. Skin and subcutaneous tissue overlying target site injection [address] [address] PAIN MANAGEMENT CONSULTATION Name: TARIQ LEWIS Room #: [facility]#: [id number] Admission: 02/03/21 Attend Phys: Irving Riley DO Discharge: Date of : 43 Report #: [id number] anesthetized with 3 mL of 1% lidocaine. A 20 gauge 3-1/2 inch Tuohy needle advanced under fluoroscopic guidance towards the epidural space using a midline approach. Epidural space identified using loss of resistance to air technique. After negative aspiration for heme or cerebrospinal fluid, 1 mL of Omnipaque injected. A cervical epidurogram was confirmed using both AP and oblique fluoroscopy. After negative aspiration for heme or cerebrospinal fluid, 5 mL solution containing 2 mL 40 mg per mL 80 mg total triamcinolone along with 3 mL of lidocaine, 1% injected slowly. Needle retracted shelter, flushed with 1 mL of 1% lidocaine and removed. Sterile bandage placed over injection site. No new motor deficits present in the upper extremities following procedure. The patient tolerated the procedure well, carefully escorted to recovery room in stable condition. No apparent complications. After meeting discharge criteria, the patient discharged home. <ELECTRONICALLY SIGNED> By: Irving Riley DO 02/03/21 1302 [id number] Irving Riley DO /nt
== END | disposition home or self-care (01) ==
LOC: PAIN 06:57
PROVIDERS: ATTEND Anesthesiology Pain Medicine
DX: M47.22 Other spondylosis with radiculopathy, cervical region (principal); M48.02 Spinal stenosis, cervical region; G89.29 Other chronic pain; I10 Essential (primary) hypertension; M19.90 Unspecified osteoarthritis, unspecified site; Z98.890 Other specified postprocedural states; Z79.899 Other long term (current) drug therapy; Z88.0 Allergy status to penicillin; Z88.8 Allergy status to other drugs, medicaments and biological substances